=== PATIENT | male | born 1960 | race Caucasian/White ===

== ENCOUNTER 2019-05-07 11:43 | Day surgery (SDC) | payer OTHER ==
[2019-04-09 09:31] LABS: ABSOLUTE BASOPHILS # (AUTO) 0.1 10^3/uL (0.0-0.2); ABSOLUTE EOSINOPHILS # (AUTO) 0.2 10^3/uL (0.0-0.6); ABSOLUTE LYMPHOCYTES (AUTO) 2.3 10^3/uL (0.5-4.7); ABSOLUTE MONOCYTES (AUTO) 0.9 10^3/uL (0.1-1.4); ABSOLUTE NEUT (AUTO) 5.6 10^3/uL (1.7-8.2); BASOPHILS % (AUTO) 0.9 % (0-2); EOSINOPHILS % (AUTO) 1.8 % (0-6); HEMATOCRIT 46.3 % (37.9-51.0); LYMPHOCYTES % (AUTO) 25.7 % (13-45); MEAN CORPUSCULAR HEMOGLOBIN 32.8 pg (27.0-33.4); MEAN CORPUSCULAR HGB CONC 34.5 g/dL (32.0-36.0); MEAN CORPUSCULAR VOLUME 95 fl (80-97); MONOCYTES % (AUTO) 10.1 % (3-13); PLATELET COUNT 179 10^3/uL (150-450); RED BLOOD COUNT 4.88 10^6/uL (4.35-5.55); RED CELL DISTRIBUTION WIDTH 13.9 % (11.5-14.0); SEGMENTED NEUTROPHILS % (AUTO) 61.5 % (42-78); TOTAL CELLS COUNTED % (AUTO) 100 %; WHITE BLOOD COUNT 9.1 10^3/uL (4.0-10.5)
--- NOTE | 2019-04-09 09:45 | EKG REPORT ---
SEVERITY:- BORDERLINE ECG - SINUS RHYTHM PROBABLE LEFT ATRIAL ABNORMALITY : Confirmed by: Dandy Valentin 09-Apr-2019 09:44:05
[2019-04-09 10:06] LABS: ANION GAP 6 (5-19); BLOOD UREA NITROGEN 19 mg/dL (7-20); CALCIUM 9.9 mg/dL (8.4-10.2); CARBON DIOXIDE 32 mmol/L (22-30); CHLORIDE 102 mmol/L (98-107); GLUCOSE 93 mg/dL (75-110)
--- NOTE | 2019-04-09 10:14 | RADIOLOGY REPORT (SQ) ---
EXAM DESCRIPTION: CHEST PA/LATERAL COMPLETED DATE/TIME: 04/09/2019 9:56 am REASON FOR STUDY: PRE-OP COMPARISON: None. EXAM PARAMETERS: NUMBER OF VIEWS: two views TECHNIQUE: Digital Frontal and Lateral radiographic views of the chest acquired. RADIATION DOSE: NA LIMITATIONS: none FINDINGS: LUNGS AND PLEURA: Biapical linear opacities, likely scarring with associated bullous emphy sematous change. Mild additional left lower lobe linear opacities. No dense consolidation. No pleu ral effusion. No pneumothorax. Emphysematous change with mildly increased AP diameter. Additional lingular No other airspace disease. MEDIASTINUM AND HILAR STRUCTURES: No masses or contour abnormalities. HEART AND VASCULAR STRUCTURES: Heart normal size. No evidence for failure. BONES: No acute findings. HARDWARE: Biapical linear opacities likely scarring with bullous emphysematous change. Minimal left lower lobe linear opacities likely scarring. OTHER: No other significant finding. IMPRESSION: Biapical linear opacities likely scarring with bullous emphysematous change. Minimal le ft lower lobe nodular linear opacities, possibly also scarring. Nonemergent CT could be considered f or further characterization and to exclude underlying lesion. No definite acute intrathoracic process. TECHNICAL DOCUMENTATION: JOB ID: [id number] [employer]- All Rights Reserved Reading location - IP/workstation name: [email or web address]
[~2019-05-07 11:43] MED LIST: CEFAZOLIN SODIUM 2 GM in DEXTROSE 5%-WATER 100 ML IV PRN
[2019-05-07] MEDS ORDERED: ALBUTEROL SULFATE 0.083% NEB 2.5 MG/3 ML AMPUL NEB ONE (12:35)
[2019-05-07] MEDS ORDERED: IPRATROPIUM/ALBUTEROL 0.5-2.5 MG/3 ML AMPUL NEB ONE (13:51)
[2019-05-07] MEDS ORDERED: GLYCOPYRROLATE 1 MG/5 ML VIAL ONE (14:13)
[2019-05-07] MEDS ORDERED: FENTANYL CITRATE INJ/PF 250 MCG/5 ML AMPULE ONE (15:00)
[2019-05-07] MEDS ORDERED: FENTANYL CITRATE INJ/PF 100 MCG/2 ML AMPUL ONE (15:00)
[2019-05-07] MEDS ORDERED: DEXAMETHASONE SOD PHOSPHATE INJ 4 MG/1 ML VIAL ONE (15:00)
[2019-05-07] MEDS ORDERED: MIDAZOLAM 2 MG/2 ML INJ ONE (15:00)
[2019-05-07] MEDS ORDERED: PROPOFOL INJ 200 MG/20 ML VIAL IV ONE (15:01)
[2019-05-07] MEDS ORDERED: ONDANSETRON HCL INJ/PF 4 MG/2 ML SDV ONE (15:01)
[2019-05-07] MEDS ORDERED: BUPIVACAINE HCL 0.5 % INJ/PF 30 ML SDV ONE (15:07)
[2019-05-07] MEDS ORDERED: MORPHINE SULFATE 10 MG/ML INJ IV PRN ×2 (15:49→16:34)
[2019-05-07] MEDS ORDERED: PROMETHAZINE HCL INJ 25 MG/1 ML VIAL IV PRN ×2 (15:49)
[2019-05-07] MEDS ORDERED: ONDANSETRON HCL INJ/PF 4 MG/2 ML SDV IV PRN ×2 (15:49→16:34)
[2019-05-07] MEDS ORDERED: FENTANYL CITRATE INJ/PF 100 MCG/2 ML AMPUL IV PRN ×3 (15:49)
[2019-05-07] MEDS ORDERED: MEPERIDINE HCL/PF INJ 25 MG/1 ML DISP.SYRIN IV PRN (15:49)
[2019-05-07] MEDS ORDERED: DIPHENHYDRAMINE HCL 50 MG/ML VIAL IV PRN (15:49)
[2019-05-07] MEDS ORDERED: OXYCODONE-ACETAMINOPHEN 5-325 MG TABLET PO PRN (16:34)
--- NOTE | 2019-05-07 16:35 | Discharge Summary ---
Discharge Summary (SDC) - Discharge Final Diagnosis: Right Carpal Tunnel Right Dequervains Tenosynovitis Right Superficial Radial Neuralgia Date of Surgery: 05/07/19 Discharge Date: 05/07/19 Forms: ASU Anesthesia D/C Instruction, Discharge POC-Surgical Service Treatment or Instructions: Schedule Follow Up w/ Dr. Sahil Archer @ [facility] to be seen in 10-14 days or as scheduled [place]: [place]: [place]: Ice and elevate Keep splint clean/dry/intact, do not remove. If your fingers become numb please unwrap the Zack wrap but leave the splint in place, if the sensation does not return within 30 minutes please return to the emergency department. May begin finger range of motion attempting to make full fist. Please use ibuprofen (Motrin or Advil) 600-800 mg every 8 hours as needed for pain or fever DO NOT TAKE w/ TORADOL may use once TORADOL complete. You may also use acetaminophen (Tylenol) 1000 mg every 4-6 hours as needed for pain or fever. Please be aware that many medications contain acetaminophen, do not exceed a total of 1000 mg of acetaminophen every 6 hours. If ibuprofen and acetaminophen are not sufficient for your pain you may take the Percocet/[place]. Please be aware that the Percocet/[place] does contain Tylenol. Stool softener of choice when on pain medication. USE OF [id number] IBUPROFEN: Ibuprofen (Advil, Nuprin, Medipren, Motrin IB) is a medication for fever and pain control. In addition, it has anti- inflammatory effects which may be beneficial, especially in the treatment of injuries. It's best to take ibuprofen with food. Persons with ulcer disease or allergy to aspirin should notify their physician of this before taking ibuprofen. Ibuprofen can be given every four to six hours, for a total of four doses daily. Age Pain or fever dose Antiinflammatory dose 6-8 yr 200 mg (1 tab) 200 mg (1 tab) 9-11 yr 200 mg (1 tab) 200-400 mg (1-2 tab) 11-14 yr 200-400 mg (1-2 tab) 400 mg (2 tab) 15-adult 400 mg (2 tab) 600 mg (3 tab) ORAL NARCOTIC MEDICATION: You have been given a prescription for pain control. This medication is a narcotic. It's best taken with food, as nausea can result if taken on an empty stomach. Don't operate machinery or drive within six hours of taking this medication. Do not combine this medicine with alcohol, or with any medication which can cause sedation (such as cold tablets or sleeping pills) unless you get permission from the physician. Narcotics tend to cause constipation. If possible, drink plenty of fluids and eat a diet high in fiber and fruits. Please be aware that prescription narcotics also have the potential for abuse. People become addicted to these medications because of the general sense of wellbeing that they induce. This feeling along with a significant reduction in tension, anxiety, and aggression provides a stimulating seductive quality to these drugs. Once your pain is under control, we encourage you to discard your unused narcotics. Prescriptions: Oxycodone HCl/Acetaminophen [Percocet 5-325 mg Tablet] 1 tab PO Q6 PRN #25 tab PRN Reason: Referrals: SAHIL ARCHER DO [ACTIVE STAFF] - Discharge Diet: As Tolerated Respiratory Treatments at Home: Deep Breathing/Coughing, Incentive Spirometer Report the Following to Your Physician Immediately: Fever over 101 Degrees, Unusual Bleeding, Redness, Swelling, Warmth, Increased Soreness, Drainage-Yellow
--- NOTE | 2019-05-07 16:40 | Operative Report ---
Operative Report DATE OF SURGERY: 05/07/19 PREOPERATIVE DIAGNOSIS: Right Carpal Tunnel Syndrome. Right Dequervains Tenosy novitis. Right Superficial Radial Neuralgia POSTOPERATIVE DIAGNOSIS: Same OPERATION: Right Carpal Tunnel Release. Right first dorsal compartment release with tenosynovectomy. Right Superficial Radial nerve neurolysis SURGEON: JANA ARCHER ANESTHESIA: GA COMPLICATIONS: None ESTIMATED BLOOD LOSS: Minimal PROCEDURE: Indication for above procedure: 59-year-old male who sustained a dog bite injury to his right upper extremity while at work. Patient was seen in outside facility where he underwent operative treatment which include irrigation, debridement with tendon repair. Patient originally did well postoperatively but continued to have pain and discomfort along with numbness and tingling consistent with carpal tunnel and superficial radial neuralgia along with de Quervain's. We attempted conservative measures including injections, occupational therapy, activity modification and neuropathic medication without resolution of patient's symptoms. At that point decision was made to proceed with operative int ervention. Procedure In Detail: Patient was seen and evaluated in the preoperative holding area. The RIGHT upper extremity was initialized and marked. Patient received 2g of Ancef IV for bacterial prophylaxis. Patient was taken back to the operative room where transferred to the operative table and placed under general anesthesia. Once they were adequately anesthetized a nonsterile tourniquet was placed on the upper extremity. A surgical team debriefing was performed ensuring all instrumentation was available, the surgical procedure was discussed with possible concerns reviewed. The upper extremity was prepped with chlorhexidine and alcohol and draped in a sterile fashion. A timeout was done identifying correct patient, procedure and extremity everyone in attendance agree with this and verbalized no concerns. The extremity was exsanguinated the tourniquet was inflated to 250 mmHg. Patient's previous scar from his original injury was utilized on the proximal aspect of the wrist extending along the radial border. Blunt dissection was performed. Small peripheral veins were isolated and coagulated with bipolar cautery. Branches of the lateral antebrachial cutaneous nerves were identified and there was scarring to the adjacent soft tissues and underlying brachial radialis tendon. Neuro lysis of the lateral antebrachial cutaneous nerve was performed proximally and distally. The interval between the brachioradialis and ECRL was utilized. The radial artery was identified and freed from surrounding soft tissue. The superficial radial nerve was then identified crossing deep to the brachioradialis with significant compression noted along the superficial radial nerve secondary to overlying scar of the brachioradialis. A Z- lengthening of the brachial radialis was performed relieving pressure. A second incision was then utilized along the first dorsal compartment. Blunt dissection was performed. Distal branches of the superficial radial nerve identified and neurolysed. These nerve branches were then retracted exposing the first dorsal compartment. The first dorsal compartment was then incised along its dorsal border. The APL and EPB were identified. There is significant tenosynovitis and adhesions of the tendons and extensor tenosynovectomy was performed. There was remanent Ethibond suture and nonviable tissue adherent to the tendons this was excised and sent to pathology and microbiology. Through the second incision the superficial radial nerve was tracked under the subcutaneous tissues to the more proximal incision to ensure adequate release and no discontinuity. Once this was confirmed the nerve was continually followed running my finger proximally to ensure no residual compression. Attention then turned to carpal tunnel release. Longitudinal skin incision was made in line with the radial border of the ring finger. Any peripheral veins were coagulated bipolar cautery. Palmar fascia was incised in line with the skin incision. Transverse carpal ligament was then identified and released distally over the adipose protecting the superficial palmar arch. The transverse carpal ligament was then released proximally under direct visualization including distal aspect the volar antebrachial fascia. With completion there is no residual compression proximally or distally. There was compression along the wrist flexion crease. No significant tenosynovium was appreciated. Wounds were copiously irrigated with normal saline. Tourniquet was deflated. Any peripheral bleeding was controlled with bipolar cautery. Subcutaneous tissues were closed interrupted 4-0 Monocryl suture. Skin was closed with horizontal mattress 4-0 nylon suture. 30 cc of 0.5% bupivacaine without epinephrine was injected for postoperative pain control. Patient was placed in a volar resting splint. Sponge counts, instrument counts, needle counts were correct. Patient was then awoken from anesthesia. Transferred from the operating room table to the operating room stretcher. There was no intraoperative complications patient tolerated procedure well stable to PACU. Postop plan: Patient follow in the office in 2 weeks at which point we will set him up for occupational therapy. Patient is avoid any heavy lifting for up to 6-8 weeks.
[2019-05-07 18:47] VITALS: BP 144/68
== END 2019-05-07 18:45 | disposition home or self-care (01) ==
LOC: OROUT 11:43
PROVIDERS: ATTEND Orthopaedic Surgery
DX: G56.01 Carpal tunnel syndrome, right upper limb (principal); M65.4 Radial styloid tenosynovitis [de Quervain]; G56.31 Lesion of radial nerve, right upper limb; M25.531 Pain in right wrist; F17.210 Nicotine dependence, cigarettes, uncomplicated
CPT/HCPCS: 93005; 36415; 87070; 87205; 85025; 87075; 87077; 80048; 87186; 88305 ×2; 71046; 93010; 94640; 01810; 64721; 25118; 64708; 25116; J2250; J3490 ×2; J0690; J1100; J3010; J2405; J7060; J2704; 1810; J7620